=== PATIENT | male | born 1960 | race Native Hawaiian/Other Pacific Islander ===

== ENCOUNTER 2016-05-16 08:08 | Emergency (ER) | payer OTHER ==
[~2016-05-16] VITALS: Ht 177.8 cm; Wt 93.0 kg
[2016-05-16 08:23] VITALS: BP 159/89; TEMP 97.9
[2016-05-16] MEDS ORDERED: NUCYNTA75 MG PO (08:24)
[2016-05-16] MEDS ORDERED: PANT40TA PO (08:25)
[2016-05-16] MEDS ORDERED: ZANTAC300 MG PO (08:25)
[2016-05-16] MEDS ORDERED: FERROUS SULF324 MG PO (08:26)
[2016-05-16] MEDS ORDERED: IRON325 MG OR (08:26)
[2016-05-16 08:57] LABS: PLATELET COUNT 247 K/uL (142-355)
== END 2016-05-16 10:12 | disposition home or self-care (01) ==
LOC: ED 08:08
PROVIDERS: Family Medicine
DX: K21.9 Gastro-esophageal reflux disease without esophagitis (principal); K80.80 Other cholelithiasis without obstruction; R10.11 Right upper quadrant pain; R11.2 Nausea with vomiting, unspecified; R00.1 Bradycardia, unspecified
CPT/HCPCS: 36415; 81000; 83605; 85027; 86318; 93005; 96361; 96374; 99284; J2550

== ENCOUNTER 2016-06-04 22:19 | Emergency (ER) | payer OTHER ==
[~2016-06-04] VITALS: Ht 177.8 cm; Wt 93.0 kg
[~2016-06-04 22:19] MED LIST: FERROUS SULF324 MG PO; IRON325 MG OR; NUCYNTA75 MG PO; PANT40TA PO; ZANTAC300 MG PO
[2016-06-04 22:47] LABS: PLATELET COUNT 366 K/uL (142-355)
[2016-06-04 22:56] LABS: POTASSIUM 4.7 mmol/L (3.6-5.2); SODIUM 132 mmol/L (136-145)
[2016-06-04 23:40] VITALS: BP 158/85; TEMP 98.3
== END 2016-06-04 23:49 | disposition home or self-care (01) ==
LOC: ED 22:19
DX: R10.84 Generalized abdominal pain (principal)
CPT/HCPCS: 36415; 80053; 85027; 96372; 99283; J1885

== ENCOUNTER 2016-09-25 08:37 | Outpatient (CLI) | payer OTHER | END 2016-09-25 19:31 | disposition home or self-care (01) | LOC: RAD 08:37 | DX: Z01.818 Encounter for other preprocedural examination (principal) ==

== ENCOUNTER 2016-11-21 10:47 | Outpatient (CLI) | payer OTHER ==
[2016-11-21 11:18] LABS: PLATELET COUNT 240 K/uL (142-355)
== END 2016-11-21 12:00 | disposition home or self-care (01) ==
LOC: LABW 10:47
PROVIDERS: Pain Medicine Interventional Pain Medicine
DX: M51.04 Intervertebral disc disorders with myelopathy, thoracic region (principal); R50.9 Fever, unspecified
CPT/HCPCS: 36415; 85027; 86140

== ENCOUNTER 2018-03-31 08:22 | Emergency (ER) | payer OTHER ==
[~2018-03-31] VITALS: Ht 177.8 cm; Wt 95.3 kg
[2018-03-31 08:57] LABS: PLATELET COUNT 280 K/uL (142-355)
[2018-03-31 09:07] LABS: POTASSIUM 4.2 mmol/L (3.6-5.2)
[2018-03-31 10:09] VITALS: BP 119/75; TEMP 98
== END 2018-03-31 10:12 | disposition home or self-care (01) ==
LOC: ED 08:22
DX: K44.9 Diaphragmatic hernia without obstruction or gangrene (principal); R53.1 Weakness; R73.9 Hyperglycemia, unspecified
CPT/HCPCS: 80053; 80307; 81000; 85027; 93005; 99283

== ENCOUNTER 2018-06-03 11:48 | Day surgery (SDC) | payer OTHER ==
[2018-06-03 12:17] LABS: PLATELET COUNT 343 K/uL (142-355)
[2018-06-03 12:29] LABS: POTASSIUM 3.6 mmol/L (3.6-5.2)
== END 2018-06-03 17:59 | disposition home or self-care (01) ==
LOC: OR 11:48
PROVIDERS: Internal Medicine Gastroenterology
PROC: 0DBN8ZZ Excision of Sigmoid Colon, Via Natural or Artificial Opening Endoscopic (ICD-10-PCS; principal; 2018-06-03)
PROC: 0DBL8ZZ Excision of Transverse Colon, Via Natural or Artificial Opening Endoscopic (ICD-10-PCS; 2018-06-03)
DX: K57.30 Diverticulosis of large intestine without perforation or abscess without bleeding (principal); K63.5 Polyp of colon; K64.8 Other hemorrhoids; Z12.11 Encounter for screening for malignant neoplasm of colon; D50.8 Other iron deficiency anemias
CPT/HCPCS: 80053; 85027; J2001; J2250; J2405; J2704

== ENCOUNTER 2019-12-01 13:34 | Outpatient (CLI) | payer OTHER | END 2019-12-02 00:03 | disposition home or self-care (01) | LOC: MRI 13:34 | DX: M54.12 Radiculopathy, cervical region (principal); M54.16 Radiculopathy, lumbar region ==

== ENCOUNTER 2020-03-20 15:15 | Outpatient (CLI) | payer OTHER | END 2020-03-20 19:41 | disposition home or self-care (01) | LOC: RAD 15:15 | PROVIDERS: ATTEND Physician Assistant Medical | DX: M54.12 Radiculopathy, cervical region (principal) ==

== ENCOUNTER 2020-05-25 16:46 | Emergency (ER) | payer OTHER ==
[~2020-05-25] VITALS: Ht 177.8 cm; Wt 99.3 kg
[2020-05-25 17:15] LABS: PLATELET COUNT 241 K/uL (142-355)
[2020-05-25 17:20] LABS: POTASSIUM 3.6 mmol/L (3.6-5.2); SODIUM 142 mmol/L (136-145)
[2020-05-25 18:44] VITALS: BP 153/74; TEMP 98
== END 2020-05-25 18:44 | disposition home or self-care (01) ==
LOC: ED 16:46
PROVIDERS: Hospitalist
DX: R07.89 Other chest pain (principal); K21.9 Gastro-esophageal reflux disease without esophagitis; D64.89 Other specified anemias; R06.02 Shortness of breath; Z20.828 Contact with and (suspected) exposure to other viral communicable diseases
CPT/HCPCS: 36591; 80053; 82550; 83880; 84484; 85008; 85027; 85379; 85610; 85730; 87635; 93005; 99283; U0003